=== PATIENT | male | born 1950 | race Hispanic/Latino ===

== ENCOUNTER 2016-11-27 13:25 | Emergency (ER) | payer OTHER ==
[~2016-11-27] VITALS: Ht 172.7 cm; Wt 81.8 kg
[2016-11-27 13:27] VITALS: BP 132/75; PULSE 86; RESP 20; O2SAT 95
--- NOTE | 2016-11-27 13:56 | ED.REPORT ---
HPI-URI / Cough / Cold Date of Service Nov 27, 2016 ED Provider: History of Present Illness: has a cold, started last . primary care is no one. . normally healthy, no medication Nursing Notes Stated Complaint: FLU LIKE SYMPTOMS Chief Complaint: FLU/Cold Symptoms Nursing Notes Reviewed: Yes Allergies: Coded Allergies: No Known Allergies (Unverified , 11/27/16) General Time Seen by MD: 13:55 Chief Complaint Cough, non-productive, Upper resp infection Hx Obtained From: Patient Onset Occurred: 4 days ago Past Medical History Past Medical History Denies: Asthma, Diabetes mellitus Past Surgical History denies Smoking History Former Smoker (quit 18 years ago) Social History Alcohol Use: "Social" Drug Use: Denies drug use Other Social History: Occupation work at [employer] 11/27/2016 Ambulatory Status Independent Review of Systems Basic Review of Systems Cardiovascular: No chest pain, No dyspnea on exertion, No orthopnea, No parox noct dyspnea, No palpitations : No dysuria, No frequency Musculoskeletal: No extremity swelling, No extremity pain, Full range of motion , Joints NL Hematologic: No bleeding, No bruising Endocrine: No cold intolerance, No heat intolerance, No weight gain, No weight loss Psychiatric: Normal thought content Physical Exam Initial Vital Signs Vital Signs (First) Date Time Temp Pulse Resp B/P Pulse Ox O2 Delivery O2 Flow Rate FiO2 11/27/16 13:27 37.4 86 20 132/75 95 Room Air Initial VS: Reviewed, Vital signs normal Head / Eyes: Atraumatic, Normocephalic, PERRL Neck: Supple, Non-tender, Full range of motion Cardiovascular: Regular rate & rhythm, Heart sounds normal, Intact distal pulses Abdomen / GI: Soft, Non-tender, No guarding, No rebound, No distention Back: No CVA tenderness Lymphatic: No lymphadenopathy Extremities: Vascular intact, Neuro intact, No swelling, No tenderness Skin: Warm, Dry, No cyanosis Neurologic: Alert, Oriented, Nonfocal Psychiatric: Mood/affect normal, Behavior normal, Normal thought content General/Constitutional: Awake, Alert, No acute distress, Well appearing, Well developed, Well hydrated ENT: Atraumatic, Airway patent, Mucous membranes moist, Pharynx NL, No peritonsillar abscess Respiratory / Chest: Atraumatic, Breath sounds NL, Breath sounds = bilat, No respiratory distress Head / Eyes: Atraumatic, Normocephalic, PERRL, EOMI Cardiovascular: Heart rate NL, Regular rhythm, Heart sounds NL, No gallop Abdomen: Atraumatic, Soft, Non-tender Interpretation & Diagnostics X-Ray Chest Interpretation Chest Xray Interpretation: ECHNIQUE: 2 views of the chest were acquired. COMPARISON: None. FINDINGS: Surgical changes and devices: None. Lungs and pleura: No pleural effusions or pneumothorax. Lungs are clear. Mediastinum: Mediastinal contours are normal. Heart size is normal. Bones and chest wall: No suspicious bony abnormalities. Soft tissues appear unremarkable. IMPRESSION: No pneumonia found. Re-Eval/Medical Decision Med Decision/Clinical Course Med Decision/Clinical Course: Discussed wioth patient he is 4 days from onset of symptoms, tamiflu not indicated. vital signs stable Discharge & Departure Impression: Primary Impression: Influenza due to influenza A virus Disposition: Home Patient Instructions: Influenza (ED) Additional Instructions: The influenza swab is positive for influenza A. The chest x-ray does not show any sign of infection. You are being provided a note for off work till 2016. You are 4 days from the onset of symptoms, tamiflu is not indicated this far out. Ibuprofen will be helpful for the body aches, take 600 mg 3 times a day for 4 days. REturn if any concerns. Need to establish in primary care, consider [facility]. Referrals: [facility] EDSupervising Provider for APC: Dale Woodson MD copies to: [facility] SonAnahi VASILIY Nov 27, 2016 13:56
--- NOTE | 2016-11-27 15:23 | DRSVH ---
PROCEDURE: X-RAY CHEST, TWO VIEWS ([id number]) INDICATIONS: cough TECHNIQUE: 2 views of the chest were acquired. COMPARISON: None. FINDINGS: Surgical changes and devices: None. Lungs and pleura: No pleural effusions or pneumothorax. Lungs are clear. Mediastinum: Mediastinal contours are normal. Heart size is normal. Bones and chest wall: No suspicious bony abnormalities. Soft tissues appear unremarkable. IMPRESSION: No pneumonia found. Dictated by: Lopez Benavides M.D. on 11/27/2016 at 15:22 Approved by: Lopez Benavides M.D. on 11/27/2016 at 15:22
[2016-11-27 15:56] VITALS: BP 124/70; PULSE 75; O2SAT 93
== END 2016-11-27 15:24 | disposition home or self-care (01) ==
LOC: SED 13:25
DX: J10.1 Influenza due to other identified influenza virus with other respiratory manifestations (principal)